=== PATIENT | female | born 1990 | race Caucasian/White ===

== ENCOUNTER 2017-01-18 18:47 | Day surgery (SDC) | payer OTHER, SELFPAY ==
[~2017-01-18] VITALS: Ht 160 cm; Wt 60.8 kg
[2017-01-18 19:52] LABS: BASO % 0.4 % (0.0-1.0); EOS % 0.2 % (0.0-3.0); LARGE UNSTAINED CELL # 0.1 K/mm3 (0.0-0.4); LARGE UNSTAINED CELL % 0.5 % (0.0-4.0); LYMPH # 1.4 K/mm3 (1.5-6.5); LYMPH % 13.6 % (24.0-44.0); MEAN CORPUSCULAR HEMOGLOBIN 30.6 pg (27.0-33.0); MEAN CORPUSCULAR HGB CONC 33.2 g/dl (32.0-36.5); MEAN CORPUSCULAR VOLUME 92.1 fl (80.0-96.0); MONO # 0.2 K/mm3 (0.0-0.8); MONO % 1.9 % (0.0-5.0); NEUTROPHILS # 8.5 K/mm3 (1.8-7.7); NEUTROPHILS % 83.4 % (36.0-66.0); PLATELET COUNT, AUTOMATED 304 k/mm3 (150-450); RED CELL DISTRIBUTION WIDTH 13.1 % (11.5-14.5); WHITE BLOOD COUNT 10.2 K/mm3 (4.0-10.0)
[2017-01-18 20:33] LABS: ALBUMIN 4.1 GM/DL (3.2-5.2); ALBUMIN/GLOBULIN RATIO 1.11 (1.00-1.93); ALKALINE PHOSPHATASE 77 U/L (45-117); ALT/SGPT 23 U/L (12-78); ANION GAP 8 MEQ/L (8-16); AST/SGOT 11 U/L (15-37); BILIRUBIN,DIRECT 0.2 MG/DL (0.0-0.2); BILIRUBIN,TOTAL 0.4 MG/DL (0.2-1.0); BLOOD UREA NITROGEN 7 MG/DL (7-18); CALCIUM LEVEL 8.9 MG/DL (8.5-10.1); CARBON DIOXIDE LEVEL 25 MEQ/L (21-32); CHLORIDE LEVEL 107 MEQ/L (98-107); CREATININE FOR GFR 0.65 MG/DL (0.55-1.02); GLOMERULAR FILTRATION RATE > 60.0 (>60); GLUCOSE, FASTING 131 MG/DL (70-105); HCG, SERUM QUANTITATIVE 1331 MIU/ML; POTASSIUM SERUM 4.4 MEQ/L (3.5-5.1); SODIUM LEVEL 140 MEQ/L (136-145); TOTAL PROTEIN 7.8 GM/DL (6.4-8.2)
--- NOTE | 2017-01-18 20:50 | REPUSA ---
Clinical history: Pain. Findings: Real-time transabdominal and transvaginal ultrasound images of the pelvis were obtained. An anteverted uterus is noted, measuring8.4 x 4.7 x 4.9 cm. The uterus demonstrates normal echotexture and echogenicity. The endometrial cavity appears unremarkable. The endometrial stripe is thickened a nd enlarged. There is no evidence of an intrauterine gestation. The right ovary measures 2.9 x 2.5 x 2.2 cm. Complex right ovarian cyst measuring 2.2 cis noted. There is a complex right adnexal mass m easuring 2.7 x 1.8 x 2.1 cm. The left ovary measures 2.0 x 1.0 x 1.6 cm. No adnexal masses are seen. Color Doppler flow is seen within both ovaries. There is moderate amount of complex fluid in the cu l-de-sac. Impression: 1. Complex right adnexal mass, suspicious for ectopic . 2. Right corpus luteum cyst. 3. Moderate amount of complex fluid in the cul-de-sac. ER physician was notified of these findings at 8:43 PM on 01/18/2017.
[2017-01-18] MEDS ORDERED: NS 1,000 ML IV ONE (21:00)
[2017-01-18] MEDS ORDERED: ACETAMINOPHEN 650 MG SUPP As Ordered ONE (23:27)
[2017-01-18] MEDS ORDERED: PREN1TAB11 PO (23:38)
[2017-01-18] MEDS ORDERED: ALBU17IN INH (23:38)
[2017-01-18] MEDS ORDERED: TYLE325T5 PO (23:38)
[2017-01-18] MEDS ORDERED: ZYRT10CA PO (23:38)
[2017-01-18] MEDS ORDERED: MIDAZOLAM INJ 2 MG/2 ML VIAL (J2250) As Ordered ONE (23:43)
[2017-01-18] MEDS ORDERED: PROPOFOL 200 MG/20 ML VIAL As Ordered ONE (23:43)
[2017-01-18] MEDS ORDERED: ROCURONIUM BROMIDE 50 MG/5 ML VIAL As Ordered ONE (23:43)
[2017-01-18] MEDS ORDERED: fentaNYL 100 MCG/2 ML INJECTION (J3010) As Ordered ONE ×2 (23:43→23:46)
[2017-01-18] MEDS ORDERED: LIDOCAINE 2% INJ 100 MG/5 ML SYRINGE As Ordered ONE (23:43)
[2017-01-18] MEDS ORDERED: GLYCOPYRROLATE INJ 0.2 MG/ML 2 ML VIAL As Ordered ONE (23:44)
[2017-01-18] MEDS ORDERED: KETOROLAC 60 MG/2 ML VIAL (J1885) As Ordered ONE (23:44)
[2017-01-18] MEDS ORDERED: METOCLOPRAMIDE INJ 10MG/2ML VIAL (J2765) As Ordered ONE (23:44)
[2017-01-18] MEDS ORDERED: NEOSTIGMINE 1MG/ML 5 ML SYRINGE (J2710) As Ordered ONE (23:44)
[2017-01-18] MEDS ORDERED: ONDANSETRON 4MG/2ML VIAL (J2405) As Ordered ONE (23:44)
[2017-01-19] VITALS (7 sets, daily range): BP systolic 106–119; BP diastolic 57–69
[2017-01-19] MEDS ORDERED: BUPIVACAINE HCL 0.5% 10 ML VIAL As Ordered ONE (00:11)
[2017-01-19] MEDS ORDERED: fentaNYL 100 MCG/2 ML INJECTION (J3010) IV PRN (01:15)
[2017-01-19] MEDS ORDERED: ONDANSETRON 4MG/2ML VIAL (J2405) IV PRN (01:15)
[2017-01-19] MEDS ORDERED: LR 1,000 ML IV SCH (01:15)
--- NOTE | 2017-01-22 11:54 | HPE ---
DATE OF ADMISSION: 01/18/2017 This lady is a 26-year-old, 2, para 1, last menstrual period (LMP) 12/10/2016, using nothing for control, had an acute onset of right lower quadrant pain searing in nature that brought her to her knees. She comes to the emergency department with significant right-sided pain starting at 1500 hours and it has not decided. She felt that she had to have a bowel movement because of significant pressure. She had a bowel movement and still the pain remained. Her past medical history is that she suffers from headaches and she takes Zyrtec for allergies. Only operative procedures are the wisdom teeth. In May 2016, she had a spontaneous vaginal delivery at 39 weeks after induction of labor because of elevated blood pressure, infant weighing 7 pounds 9 ounces. She has no medical history. She is not breast-feeding. She has no known allergies, and she has never had an sexually transmitted disease (STD). Our working diagnosis was ruptured right ectopic . She weighs 134 pounds. Her blood pressure was 154/88. Pulse was 110 and it went up to 121. She is 100% on oxygen and 99.7 temperature. She did have a postural drop because of significant abdominal pain and no evidence of bleeding. She has recently arrived from some other duty station and has not been assessed by the practice as yet. The rest of the examination is unremarkable. She has no cardiac disease, neurological issues, respiratory issues, and no gastrointestinal (GI) issues except for occasional intermittent bouts of diarrhea. She has no reproductive issues. No endocrine issues. No musculoskeletal issues. No hematological issues or psychiatric issues. On examination, she appears to be normocephalic, atraumatic. Neck full range of motions. Pupils equal and reactive to light. Her chest is clear bilaterally to bases. No wheezes or rhonchi. No costovertebral angle (CVA) tenderness. Abdomen is soft. Bowel sounds in all four quadrants. Pointed guarding of the right lower quadrant significant enough to drop her blood pressure. She has no rashes or lesions or pruritus. She is pale. She has no arthralgia or myalgia. She is not complaining of cough, wheeze, shortness of breath or dyspnea on exertion. She has no chest pain. She is neuro complete. She is oriented in all three spheres. She has no incontinence or frequency. No nausea, vomiting, diarrhea or constipation. She has no DIRECTOR OF EXHIBITS issues. She is not using any control. Past medical history is unremarkable. Surgical history is wisdom teeth. Family history is noncontributory. She does not smoke or drink or abuse drugs. She is to a soldier and there is no domestic violence. test was positive. Ultrasound was highly suggestive of hemoperitoneum with a lesion on the right adnexal area strongly suggestive of an ectopic . No evidence of intrauterine . Her basic metabolic profile was normal. Her hemoglobin was 14.1, hematocrit 42.5 and platelets were 304. Her white count was 10.2, which is slightly above normal. Her urine was 1.001, pH of 6, negative for everything else. After discussing the differential diagnosis with the patient, explaining the fact that possibility of the ruptured ectopic is causing leaking of blood in the abdomen and that a laparoscopic evaluation with possibly a right salpingectomy because of the rupture of the tube would be an appropriate option. We answered all questions. This is not hereditary issue as her mother had an ectopic . She has never had an STD and it is just the function on the right side of possibly adhesions from her appendix, although there was no suggestion ever that she had appendicitis. After discussing the risks and benefits of surgery, hemorrhage, infection, perforation, , reoperation, the patient signed and witnessed consent form. We have IV running, blood work available and the operating room ([facility]) is being contacted. Patient and expressed understanding and that it is an emergency procedure. Edited: 01/22/2017 1201 jay
--- NOTE | 2017-01-22 13:38 | RO ---
DATE OF PROCEDURE: 01/18/2017 PREOPERATIVE DIAGNOSIS: Ruptured right ectopic . POSTOPERATIVE DIAGNOSIS: Ruptured right ectopic , hematoperitoneum. OPERATION PROPOSED: Laparoscopy, excision of right ectopic , possible right salpingectomy. OPERATION PERFORMED: Evacuation of hemoperitoneum, right salpingectomy. ANESTHESIA: General plus local anesthetic for intraperitoneal procedures. ESTIMATED BLOOD LOSS: 500 mL intraperitoneally. SURGEON: Mervin Almonte MD SALES ADMINISTRATOR: Verna Mclean MD DESCRIPTION OF PROCEDURE: Under adequate anesthesia, prepped and draped in the lithotomy position, acetaminophen suppository 1300 mg per rectum, sequentials on board, no antibiotics required, time-out was performed, Metcalf catheter in the bladder draining clear urine, a small subumbilical incision was made with direct entry. No evidence of perforation, hemorrhage, or bleeding. We inflated the abdomen with 3.8 liters of CO2 warmed; and on panoramic review, the right upper quadrant was normal with hemoperitoneum in place, right lateral gutter had blood in it, the cul-de-sac had blood in it. On the right side, there was dripping blood out of the right tube at the fimbriated end and a large ectopic with rupture on the outside. The right ovary appeared to be normal. The left ovary and tube appeared to be normal. The uterus itself was normal. The left upper quadrant, again, there was hemoperitoneum. What we did was, we reversed the Trendelenburg, we aspirated out about 500 mL of blood, then reversed the Trendelenburg, put a 3 mm port on the right side, a 3 mm port on the left side. Then, using the harmonic scalpel, we excised off the fimbriated end and the ectopic . We extended out the incision on the right side, put the Endo bag down, placed the ectopic and partial salpingectomy in it, and removed it through that 10 mm port. With that done, we irrigated out again, making sure we got as much blood out of the abdomen as possible, identified the right area of injury that noted there was no evidence of bleeding to that side with good hemostasis. We then left 250 mL of normal saline in the abdomen, deflated to 4 mm pressure, removed the two lateral ports, and removed the mainstem port, put a deep stitch in the lateral port and then the umbilical port, subcuticular stitches, Marcaine 0.25% 10 mL to all three sites with Steri-Strips. We removed the Metcalf catheter, the uterine elevator, and the patient was then sent to recovery in good condition. She is Rh positive and does not require RhoGAM.
== END 2017-01-19 09:00 | disposition home or self-care (01) ==
LOC: M ED 19:55 → M SDC 22:57 → M PED 01-19 01:30 → M SDC 01-19 09:00
PROVIDERS: ATTEND Obstetrics & Gynecology
DX: O00.90 Unspecified ectopic pregnancy without intrauterine pregnancy (principal); Z3A.01 Less than 8 weeks gestation of pregnancy
CPT/HCPCS: 36415; 59151; 76801; 80048; 80076; 81001; 81025; 83690; 84702; 85025; 86850; 86900; 86901; 88305; 99284; C2617; J1885; J2250; J2405; J2710; J2765; J3010

== ENCOUNTER 2017-02-27 10:52 | Emergency (ER) | payer OTHER, SELFPAY ==
[~2017-02-27] VITALS: Ht 160 cm; Wt 60.5 kg
[~2017-02-27 10:52] MED LIST: ALBU17IN INH; PREN1TAB11 PO; TYLE325T5 PO; ZYRT10CA PO
--- NOTE | 2017-02-27 14:35 | REP ---
FIRST TRIMESTER ULTRASOUND: Real-time sonographic evaluation of the pelvis performed utilizing transabdominal and endovaginal technique. Uterus measures 8.6 x 4.3 x 5.6 cm. In the endometrial canal there appears to be a 6 mm sac with a possible internal yolk sac. Right ovary measures 2.7 x 1.8 x 1.9 cm and left ovary 3.3 x 2.7 x 3.2 cm. Complex cystic structure in the left ovary probably represents a complex corpus luteum 1.9 x 2.0 x 1.7 cm. There is blood flow seen in each ovary with duplex Doppler evaluation, with no torsion, RI right ovary 0.46 and left ovary 0.47. No other adnexal mass or free fluid is seen. IMPRESSION: There appears to be a gestational sac in the endometrial canal which contains a possible yolk sac, estimated gestational age 5 weeks 2 days. Complex cystic structure left ovary 2 cm in diameter probably represents a corpus luteum. There is no other evidence of adnexal mass, free fluid, or torsion. The findings may represent early intrauterine . Suggest correlation with serial quantitative beta hCG values. Followup ultrasound may be obtained in 10 to 14 days to document viability. Signed by Myles Lopez MD 02/28/2017 05:10 P
[2017-02-27 14:49] VITALS: BP 138/80
== END 2017-02-27 14:55 | disposition home or self-care (01) ==
LOC: M ED 12:37
DX: N83.292 Other ovarian cyst, left side (principal); Z79.899 Other long term (current) drug therapy; Z87.59 Personal history of other complications of pregnancy, childbirth and the puerperium; Z3A.01 Less than 8 weeks gestation of pregnancy

== ENCOUNTER → 2017-04-01 | Outpatient (CLI) | payer OTHER ==
[2017-04-01 14:33] LABS: BASO % 0.5 % (0.0-1.0); EOS % 0.7 % (0.0-3.0); LARGE UNSTAINED CELL # 0.1 K/mm3 (0.0-0.4); LARGE UNSTAINED CELL % 1.4 % (0.0-4.0); LYMPH # 2.3 K/mm3 (1.5-6.5); LYMPH % 30.5 % (24.0-44.0); MEAN CORPUSCULAR HEMOGLOBIN 30.2 pg (27.0-33.0); MEAN CORPUSCULAR HGB CONC 32.9 g/dl (32.0-36.5); MEAN CORPUSCULAR VOLUME 91.8 fl (80.0-96.0); MONO # 0.2 K/mm3 (0.0-0.8); MONO % 2.7 % (0.0-5.0); NEUTROPHILS # 4.7 K/mm3 (1.8-7.7); NEUTROPHILS % 64.4 % (36.0-66.0); PLATELET COUNT, AUTOMATED 264 k/mm3 (150-450); WHITE BLOOD COUNT 7.3 K/mm3 (4.0-10.0)
[2017-04-01 14:56] LABS: HBsAg Prenatal NEGATIVE (NEGATIVE)
== END ==
LOC: M SMT 11:36
PROVIDERS: ATTEND Advanced Practice Midwife
DX: Z36 Encounter for antenatal screening of mother (principal); Z3A.00 Weeks of gestation of pregnancy not specified

== ENCOUNTER → 2017-04-08 | Outpatient (CLI) | payer OTHER ==
[2017-04-08 13:03] LABS: ALT/SGPT 19 U/L (12-78); AST/SGOT 6 U/L (15-37); BILIRUBIN,TOTAL 0.3 MG/DL (0.2-1.0); CREATININE FOR GFR 0.46 MG/DL (0.55-1.02); GLOMERULAR FILTRATION RATE > 60.0 (>60); URIC ACID 3.2 MG/DL (2.6-6.0)
== END ==
LOC: M LRY 09:53
PROVIDERS: ATTEND Advanced Practice Midwife
DX: O13.5 Gestational [pregnancy-induced] hypertension without significant proteinuria, complicating the puerperium (principal); Z3A.00 Weeks of gestation of pregnancy not specified

== ENCOUNTER → 2017-04-18 | Outpatient (REF) | payer OTHER | LOC: M LAB REF 12:53 | PROVIDERS: ATTEND Advanced Practice Midwife | DX: Z34.82 Encounter for supervision of other normal pregnancy, second trimester (principal) ==

== ENCOUNTER → 2017-05-03 | Outpatient (REF) | payer OTHER | LOC: M LAB REF 13:29 | PROVIDERS: ATTEND Advanced Practice Midwife | DX: O13.5 Gestational [pregnancy-induced] hypertension without significant proteinuria, complicating the puerperium (principal); Z36 Encounter for antenatal screening of mother; Z3A.00 Weeks of gestation of pregnancy not specified ==

== ENCOUNTER → 2017-05-30 | Outpatient (CLI) | payer OTHER | LOC: M SMT 11:31 | PROVIDERS: ATTEND Obstetrics & Gynecology | DX: Z36 Encounter for antenatal screening of mother (principal); Z3A.00 Weeks of gestation of pregnancy not specified ==

== ENCOUNTER → 2017-06-03 | Outpatient (CLI) | payer OTHER ==
--- NOTE | 2017-06-04 06:20 | REP ---
Clinical: Anatomical evaluation. Comparison: 02/27/2017 . Findings: Examination demonstrates a single live intrauterine in variable presentation. motion is identified by technologist. Placenta is noted anteriorly and grade zero without evidence for placenta previa or abruption. Amniotic fluid volume is normal. Cervix measures 4.2 cm in length and appears closed. No evidence for nuchal cord. Gestational age by current measurements 19 weeks 0 days with DEENA 10/28/2017 . FHR equals 150 beats per minute. BPD 4.2 cm 18 weeks 5 days HC 15.9 cm 18 weeks 5 days AC 13.8 cm 19 weeks 1 day FL 3.2 cm 19 weeks 6 days HL 3.2 cm 20 weeks 4 days HC/AC ratio 1.15 Estimated weight 292 grams ( 62nd percentile). Anatomical assessment demonstrates normal structures including cranium, choroid plexus, cavum, cerebellum/posterior fossa, facial profile, lungs, diaphragm, stomach, cord insertion/three-vessel cord, kidneys/bladder, spine, and extremities. Limited evaluation of the nose/lips, heart and ventricular outflow tracts. Impression: 1. Single live intrauterine in variable presentation. 2. Estimated weight normal for age. 3. Technologist cannot exclude circumvallate placenta. 4. Limited evaluation of the facial features and heart/ventricular outflow tracts may warrant reevaluation and follow-up. Remainder of the anatomical assessment is complete and normal. Signed by Nicolas Boswell MD 06/04/2017 06:11 A
== END ==
LOC: M SMT 07:57
PROVIDERS: ATTEND Advanced Practice Midwife
DX: Z36 Encounter for antenatal screening of mother (principal); Z3A.19 19 weeks gestation of pregnancy

== ENCOUNTER → 2017-07-03 | Outpatient (CLI) | payer OTHER ==
--- NOTE | 2017-07-03 13:57 | REP ---
OB ULTRASOUND: Real-time sonographic evaluation of the gravid uterus performed utilizing transabdominal technique. There is a single living intrauterine gestation. Estimated gestational age 23 weeks 2 days. EDC 10/28/2017. Today's measurements indicate appropriate growth. BPD 55 mm = 22 weeks 5 days, 35th percentile HC 209 mm = 23 weeks 0 days, 40th percentile AC 189 mm = 23 weeks 4 days, 56th percentile Femur length 43 mm = 24 weeks 0 days, 67th percentile HC/AC ratio 1.11 within normal range. Estimated weight 615 grams, 55th percentile. Cervix is closed and measures 4.9 cm in length. heart rate 153 beats per minute. SEEN/GROSSLY UNREMARKABLE Lateral ventricles Yes Posterior fossa Yes Upper lip Yes Four-chamber heart Yes echogenic focus in left ventricle, that could be related to chordae tendineae LVOT Yes RVOT Yes Stomach Yes Cord insertion Yes Three vessel cord Yes Kidneys Yes Bladder Yes Spine Yes position: Breech. Placenta: Anterior and grade 0 with no previa or abruption. Amniotic fluid: Within normal limits. Signed by Myles Lopez MD 07/03/2017 04:46 P
== END ==
LOC: M SMT 10:29
PROVIDERS: ATTEND Advanced Practice Midwife
DX: Z36.89 Encounter for other specified antenatal screening (principal); Z3A.23 23 weeks gestation of pregnancy

== ENCOUNTER → 2017-07-24 | Outpatient (CLI) | payer OTHER ==
[2017-07-24 13:10] LABS: MEAN CORPUSCULAR HEMOGLOBIN 29.4 pg (27.0-33.0); MEAN CORPUSCULAR HGB CONC 32.4 g/dl (32.0-36.5); MEAN CORPUSCULAR VOLUME 90.6 fl (80.0-96.0); PLATELET COUNT, AUTOMATED 225 10^3/uL (150-450); RED CELL DISTRIBUTION WIDTH 12.7 % (11.5-14.5); WHITE BLOOD COUNT 8.4 10^3/uL (4.0-10.0)
== END ==
LOC: M SMT 09:43
PROVIDERS: ATTEND Advanced Practice Midwife
DX: Z34.82 Encounter for supervision of other normal pregnancy, second trimester (principal)

== ENCOUNTER 2017-09-29 11:31 | Outpatient (CLI) | payer OTHER | END 2017-09-29 12:50 | disposition home or self-care (01) | LOC: M LDO 11:31 | DX: O26.813 Pregnancy related exhaustion and fatigue, third trimester (principal); R51 Headache; R42 Dizziness and giddiness; Z3A.35 35 weeks gestation of pregnancy | CPT/HCPCS: 59025 ==

== ENCOUNTER → 2017-10-02 | Outpatient (CLI) | payer OTHER ==
[2017-10-02 13:50] LABS: HEMATOCRIT 33.5 % (36.0-47.0); HEMOGLOBIN 10.8 g/dl (12.0-16.0); MEAN CORPUSCULAR HEMOGLOBIN 27.7 pg (27.0-33.0); MEAN CORPUSCULAR HGB CONC 32.2 g/dl (32.0-36.5); MEAN CORPUSCULAR VOLUME 85.9 fl (80.0-96.0); PLATELET COUNT, AUTOMATED 289 10^3/uL (150-450); RED CELL DISTRIBUTION WIDTH 12.4 % (11.5-14.5); WHITE BLOOD COUNT 9.9 10^3/uL (4.0-10.0)
[2017-10-02 14:24] LABS: ALT/SGPT 15 U/L (12-78); AST/SGOT 14 U/L (7-37); BILIRUBIN,TOTAL 0.4 MG/DL (0.2-1.0); CREATININE FOR GFR 0.48 MG/DL (0.55-1.02); GLOMERULAR FILTRATION RATE > 60.0 (>60); LDH LACTATE DEHYDROGENASE 179 U/L (84-246); URIC ACID 3.9 MG/DL (2.6-6.0)
[2017-10-02 14:43] LABS: CREATININE,RANDOM URINE 69.8 MG/DL
[2017-10-02 14:43] LABS: TOTAL PROTEIN,RANDOM URINE 14.4 MG/DL (0.0-12.0)
== END ==
LOC: M SMT 08:43
DX: O16.3 Unspecified maternal hypertension, third trimester (principal); Z3A.00 Weeks of gestation of pregnancy not specified
CPT/HCPCS: 84460

== ENCOUNTER 2017-10-10 10:50 | Inpatient (IN) | payer OTHER ==
[2017-10-10] MEDS: miSOPROStol 50 MCG 1/2 TAB (S0191) PO ×3 (12:09→20:30)
[2017-10-10] MEDS ORDERED: PENICILLIN G POTASSIUM IV 2.5 MU in APPROPRIATE DILUENT 1 EA IV (16:00)
[2017-10-10 18:18] LABS: AMPHETAMINES URINE REFLEX NEGATIVE (NEGATIVE); BARBITURATES URINE REFLEX NEGATIVE (NEGATIVE); BENZODIAZEPINES URINE REFLEX NEGATIVE (NEGATIVE); CANNABINOIDS URINE REFLEX NEGATIVE (NEGATIVE); COCAINE METABOLITE URINE REFLE NEGATIVE (NEGATIVE); METHADONE URINE REFLEX NEGATIVE (NEGATIVE); OPIATES URINE REFLEX NEGATIVE (NEGATIVE); PHENCYCLIDINE URINE REFLEX NEGATIVE (NEGATIVE)
[2017-10-11 00:07] LABS: HEMATOCRIT 33.6 % (36.0-47.0); HEMOGLOBIN 10.7 g/dl (12.0-16.0); MEAN CORPUSCULAR HEMOGLOBIN 27.4 pg (27.0-33.0); MEAN CORPUSCULAR HGB CONC 31.8 g/dl (32.0-36.5); MEAN CORPUSCULAR VOLUME 85.9 fl (80.0-96.0); PLATELET COUNT, AUTOMATED 310 10^3/uL (150-450); RED BLOOD COUNT 3.91 10^6/uL (4.00-5.40); RED CELL DISTRIBUTION WIDTH 12.7 % (11.5-14.5); WHITE BLOOD COUNT 12.6 10^3/uL (4.0-10.0)
[2017-10-11] MEDS: PENICILLIN G POTASSIUM IV 5 MU in D5W MINI-BAG PLUS 100 ML IV ×2 (02:24→02:55)
[2017-10-11] MEDS: OXYTOCIN DRIP 30 UNITS in APPROPRIATE DILUENT 1 EA IV ×2 (02:55→14:09)
[2017-10-11] MEDS: LR 1,000 ML IV ×2 (02:55→11:35)
[2017-10-11] MEDS: PROMETHAZINE INJ 25 MG/ML VIAL (J2550) IV (02:55)
[2017-10-11] MEDS: BUTORPHANOL 2 MG/ML INJ (J0595) IV (02:56)
[2017-10-11] MEDS: PENICILLIN G POTASSIUM IV 2.5 MU in APPROPRIATE DILUENT 1 EA IV ×2 (07:02→10:53)
[2017-10-11] MEDS ORDERED: FENTANYL 2MCG/ML ROPIVACAINE 0.2% IN 0.9% NACL 200ML IVBAG As Ordered (10:42)
[2017-10-11] MEDS ORDERED: REFRIGERATOR IV KEYS XX (11:45)
[2017-10-11] MEDS ORDERED: NALOXONE INJ 0.4 MG/1 ML VIAL (J2310) IV (11:45)
[2017-10-11] MEDS ORDERED: EPIDURAL/PCA KEYS XX (11:45)
[2017-10-11] MEDS ORDERED: ePHEDrine INJ 50 MG/ML VIAL IV (11:45)
[2017-10-11] MEDS ORDERED: EPIDURAL COMMENT XX (11:45)
[2017-10-11] MEDS ORDERED: diphenhydrAMINE INJ 50MG/ML VIAL (J1200) IV (11:45)
[2017-10-11] MEDS ORDERED: ONDANSETRON 4MG/2ML VIAL (J2405) IV (11:45)
[2017-10-11] MEDS ORDERED: LACTATED RINGER'S 1000 ML IV (11:45)
[2017-10-11] MEDS ORDERED: FENTANYL/ROPIVACAINE/NACL BAG 200 ML EPIDURAL (11:45)
[2017-10-11] MEDS ORDERED: METHYLERGONOVINE MALEATE 0.2 MG TAB PO (14:15)
[2017-10-11] MEDS ORDERED: MEASLES,MUMPS,RUBELLA VACCINE INJ (MMR-II) (90707) SC (14:15)
[2017-10-11] MEDS ORDERED: RHOGAM 300 MCG (1500 IU) INJ (J2790) IM (14:15)
[2017-10-11] MEDS ORDERED: ANUSOL HC CREAM 30GM TOP (14:15)
[2017-10-11] MEDS ORDERED: MOM 30ML SUSPENSION UDC PO (14:15)
[2017-10-11] MEDS ORDERED: DIBUCAINE 1% OINTMENT 30GM TOP (14:15)
[2017-10-11] MEDS: DOCUSATE SODIUM 100 MG CAP PO (19:45)
[2017-10-11] MEDS: ACETAMINOPHEN 500 MG TAB PO (19:45)
[2017-10-11] MEDS: IBUPROFEN 800 MG TAB PO (22:36)
[2017-10-12] MEDS: ACETAMINOPHEN 500 MG TAB PO ×2 (01:31→08:38)
[2017-10-12] MEDS: IBUPROFEN 800 MG TAB PO (06:11)
[2017-10-12] MEDS: INFLUENZA QUADRIVALENT PF VACCINE 0.5ML SYRINGE (90686) IM (08:35)
[2017-10-12] MEDS: PRENATAL VITAMINS CHEWABLE TABLET PO (08:35)
== END 2017-10-12 15:30 | disposition home or self-care (01) | DRG 775 ==
LOC: M LDI 10:50 → M OBS 10-11 16:45
PROVIDERS: Obstetrics & Gynecology
PROC: 3E0P7GC Introduction of Other Therapeutic Substance into Female Reproductive, Via Natural or Artificial Opening (ICD-10-PCS; 2017-10-10)
PROC: 10E0XZZ Delivery of Products of Conception, External Approach (ICD-10-PCS; principal; 2017-10-11)
PROC: 0HQ9XZZ Repair Perineum Skin, External Approach (ICD-10-PCS; 2017-10-11)
DX: O13.4 Gestational [pregnancy-induced] hypertension without significant proteinuria, complicating childbirth (principal); O99.824 Streptococcus B carrier state complicating childbirth; Z3A.37 37 weeks gestation of pregnancy; O70.0 First degree perineal laceration during delivery; Z37.0 Single live birth

== ENCOUNTER → 2017-11-29 | Outpatient (REF) | payer OTHER ==
[2017-11-29 22:07] LABS: CHLAMYDIA DNA AMPLIFICATION NEGATIVE (NEGATIVE); GC DNA AMPLIFICATION NEGATIVE (NEGATIVE)
== END ==
LOC: M SFHCLERA 19:00
DX: R30.0 Dysuria (principal)